=== PATIENT | male | born 1995 | race Caucasian/White ===

== ENCOUNTER 2017-10-20 21:44 | Emergency (ER) | payer SELFPAY ==
[2017-10-20 21:51] VITALS: RESP 16; TEMP 99
--- NOTE | 2017-10-20 21:53 | EDPHY ---
H & P Stated Complaint: c/o sorethroat/cough x 2 days, increasing cough/n/v today Time Seen by Provider: 10/20/17 21:53 HPI/ROS: HPI: This is a 21-year-old male presents with Chief Complaint: c/o sore throat/cough x 2 days, increasing cough/n/v today Location: Throat Quality: Sore Duration: 2 days Signs and Symptoms: No fever, no chills, + dry cough, + posttussive emesis, + nausea, no body aches, no fatigue, no abdominal pain, no diarrhea, + pain with swallowing Timing: Sudden, constant Severity: 01/08 Context: Patient works as a well servicing rig operator, nonsmoker, reports waking up yesterday morning with a sore throat that has gradually worsened accompanied by white exudate and swollen glands. + nonproductive cough. Reports pain increased with swallowing. no wheezing/shortness of breath/chest pain. He has tried no over-the -counter medications. No PCP. Modifying Factors: None Comment: ROS: see HPI Constitutional: No fever, no chills, no weight loss Eyes: No blurred vision Respiratory: No shortness of breath, no cough Cardiovascular: No chest pain Gastrointestinal: + nausea, + vomiting, no diarrhea Genitourinary: No dysuria Extremities: No myalgias Neurologic: No weakness, no numbness Skin: No rashes Hematologic: No bruising, no bleeding MEDICAL/SURGICAL/SOCIAL HISTORY: Medical history: Generally healthy. Does not take any regular medications. Surgical history: Denies Social history: Works at [employer] CONSTITUTIONAL: awake and alert, no obvious distress HEENT: Atraumatic and normocephalic, PERRL, EOMI. Tympanic membranes clear. Oropharynx clear, no exudate and moist pink mucosa. Airway patent. No lymphadenopathy. No meningismus. Cardiovascular: Normal S1/S2, tachycardia, regular rhythm, without murmur rub or gallop. PULMONARY/CHEST: Symmetrical and nontender. Clear to auscultation bilaterally. Good air movement. No accessory muscle usage. ABDOMEN: Soft, nondistended, nontender, no rebound, no guarding, no peritoneal signs, no masses or organomegaly. No CVAT. EXTREMITIES: 2/2 pulses, strength 5/5, no deformities, no clubbing, no cyanosis or edema. NEUROLOGICAL: no focal neuro deficits. GCS 15. SKIN: Warm and dry, no erythema. no rash. Good capillary refill. Source: Patient Exam Limitations: No limitations - Medical/Surgical History Hx Asthma: No Hx Chronic Respiratory Disease: No Hx Diabetes: No Hx Cardiac Disease: No Hx Renal Disease: No Hx Cirrhosis: No Hx Alcoholism: No Hx HIV/AIDS: No Hx Splenectomy or Spleen Trauma: No Other PMH: none - Social History Smoking Status: Never smoked Constitutional: Initial Vital Signs Temperature (C) 37.2 C 10/20/17 21:48 Heart Rate 104 H 10/20/17 21:48 Respiratory Rate 16 10/20/17 21:48 Blood Pressure 153/88 H 10/20/17 21:48 O2 Sat (%) 97 10/20/17 21:48 O2 Delivery Mode Room Air Allergies/Adverse Reactions: No Known Allergies Allergy (Unverified 10/20/17 21:51) Home Medications: Medication Instructions Recorded Lidocaine 2% Viscous 15 ml MM Q4 PRN #100 ml 10/20/17 Medical Decision Making ED Course/Re-evaluation: Strep test, influenza test, oral and IM medications ordered Patient given 60 mg IM Toradol, p.o. Decadron 10 mg, 15 mL of viscous lidocaine with adequate relief No signs of airway compromise/tonsillar abscess/Khoi's angina/meningitis Strep and influenza negative Advised supportive care This patient was seen under the supervision of my secondary supervising physician. I evaluated care for this patient independently. Discussed this patient with Dr. Jaimes who did not see the patient. Differential Diagnosis: Differential diagnosis includes but is not limited to influenza, viral syndrome , strep pharyngitis, tonsillar abscess, mononucleosis. - Data Points Laboratory Results: 10/20/17 10/20/17 Unknown 21:30 Nasal Influenza A PCR NEGATIVE FOR FLU A (NEGATIVE) Nasal Influenza B PCR NEGATIVE FOR FLU B (NEGATIVE) Group A Strep Screen NEGATIVE (NEGATIVE) Group A Strep DNA Pending Medications Given: Discontinued Medications Dexamethasone (Decadron) 10 mg PO EDNOW ONE Stop: 10/20/17 22:00 Last Admin: 10/20/17 22:07 Dose: 10 mg Ketorolac Tromethamine (Toradol) 60 mg IM EDNOW ONE Stop: 10/20/17 22:00 Last Admin: 10/20/17 22:07 Dose: 60 mg Lidocaine (Lidocaine 2% Viscous) 15 ml PO EDNOW ONE Stop: 10/20/17 22:00 Last Admin: 10/20/17 22:10 Dose: 15 ml Departure - Departure Disposition: Home, Routine, Self-Care Clinical Impression: Viral pharyngitis Condition: Good Instructions: Pharyngitis (ED) Additional Instructions: Strep test and flu test are negative. Consume a minimum of 8-10 glasses of water or electrolyte fluid replacement drinks that include Gatorade, Powerade, Pedialyte. Eat a bland diet for the next 48 hours and then slowly advance as tolerated. Take Tylenol 650 mg every 4 hours and/or Ibuprofen 600 mg every 8 hours with food as needed for pain. Salt water gargles, cough drops, throat spray as needed for sore throat. Referrals: [facility],. [Clinic] - As per Instructions Prescriptions: Lidocaine 2% Viscous 15 ml MM Q4 PRN #100 ml PRN Reason: Sore Throat
[2017-10-20] MEDS ORDERED: KETOROLAC 30 MG/1 ML SDV IM ONE (21:59)
[2017-10-20] MEDS ORDERED: DEXAMETHASONE 4 MG TAB PO ONE (21:59)
[2017-10-20] MEDS ORDERED: LIDOCAINE 2% VISCOUS 15 ML UDCUP PO ONE (21:59)
[2017-10-20 23:28] VITALS: BP 128/89; PULSE 88; O2SAT 96
== END 2017-10-20 23:26 | disposition home or self-care (01) ==
DX: J02.8 Acute pharyngitis due to other specified organisms (principal); B97.89 Other viral agents as the cause of diseases classified elsewhere
CPT/HCPCS: J1885